=== PATIENT | female | born 1975 | race Two or more races ===

== ENCOUNTER 2023-03-26 10:40 | Emergency (ER) | payer BC ==
[~2023-03-26] VITALS: Ht 162.6 cm; Wt 54.9 kg
[2023-03-26] MEDS ORDERED: KETOROLAC TROMETHAMINE INJ 30 MG/ML VIAL ONE (11:22)
[2023-03-26] MEDS ORDERED: diphenhydrAMINE HCL 50 MG/ML VIAL ONE (11:22)
[2023-03-26] MEDS ORDERED: METOCLOPRAMIDE HCL 10 MG/2 ML VIAL ONE (11:22)
[2023-03-26] MEDS ORDERED: ACETAMINOPHEN ES 500 MG TABLET ONE (11:23)
[2023-03-26] MEDS ORDERED: METOCLOPRAMIDE HCL 10 MG/2 ML VIAL IV ONE (11:30)
[2023-03-26] MEDS ORDERED: ACETAMINOPHEN ES 500 MG TABLET PO ONE (11:30)
[2023-03-26] MEDS ORDERED: IV NS 0.9% 1,000 ML BAG IV ONE (11:30)
[2023-03-26] MEDS ORDERED: KETOROLAC TROMETHAMINE INJ 30 MG/ML VIAL IV ONE (11:30)
[2023-03-26] MEDS ORDERED: diphenhydrAMINE HCL 50 MG/ML VIAL IV ONE (11:30)
[2023-03-26] MEDS ORDERED: ONDA4TAB5 PO (12:30)
[2023-03-26] MEDS ORDERED: IBUP-1955 PO (12:30)
[2023-03-26 12:39] VITALS: BP 112/75; TEMP 98.1; O2SAT 99
== END 2023-03-26 12:40 | disposition home or self-care (01) ==
LOC: ER 11:11
DX: M54.81 Occipital neuralgia (principal); G43.909 Migraine, unspecified, not intractable, without status migrainosus
CPT/HCPCS: 99284; 96374; 96375; 96361; J1200; J2765; J1885; J7030